=== PATIENT | female | born 1995 | race Hispanic/Latino ===

== ENCOUNTER 2024-05-02 12:18 | Emergency (ER) | payer SELFPAY ==
[~2024-05-02] VITALS: Ht 165.1 cm; Wt 68.0 kg
[2024-05-02 13:01] LABS: APPEARANCE,URINE CLOUDY (CLEAR); BILIRUBIN,URINE NEGATIVE (NEGATIVE); COLOR,URINE COLORLESS (YELLOW); GLUCOSE, URINE (UA) NEGATIVE (NEGATIVE); KETONES,URINE NEGATIVE (NEGATIVE); LEUKOCYTE ESTERASE ,URINE 500 Leu/uL (NEGATIVE); NITRATE,URINE NEGATIVE (NEGATIVE); OCCULT BLOOD,URINE MODERATE (NEGATIVE); PH,URINE 5.5 (5.0-8.0); PROTEIN,URINE NEGATIVE (NEGATIVE); UROBILINOGEN,URINE 0.2 mg/dL (0.2-1.0)
[2024-05-02 13:04] LABS: ADD UA MICROSCOPIC YES
[2024-05-02 13:12] LABS: BACTERIA,URINE FEW /HPF (None Seen); SQUAMOUS EPITHELIAL CELL,UR RARE /HPF (0-2); TRANSITIONAL EPI CELLS,URINE RARE /HPF (None Seen); UNCLASSIFIED CRYSTAL 2 /HPF (None Seen); WBC,URINE TNTC /HPF (0-1)
[2024-05-02] MEDS ORDERED: AMOX1TAB16 PO (14:17)
[2024-05-02 14:22] VITALS: BP 128/78; PULSE 74; RESP 16; TEMP 98.7; O2SAT 99
== END 2024-05-02 14:25 | disposition home or self-care (01) ==
LOC: EDH 12:18
DX: N30.91 Cystitis, unspecified with hematuria (principal)
CPT/HCPCS: 81001; 87086